=== PATIENT | male | born 1985 | race Hispanic/Latino ===

== ENCOUNTER 2020-10-18 12:51 | Emergency (ER) | payer OTHER ==
[~2020-10-18] VITALS: Ht 190.5 cm; Wt 89.8 kg
[2020-10-18] MEDS ORDERED: BENZONATATE 100 MG CAPSULE PO SCH (14:15)
[2020-10-18] MEDS ORDERED: ACETAMINOPHEN 325 MG TAB PO ONE (14:15)
[2020-10-18 14:16] VITALS: BP 123/79
[2020-10-18] MEDS ORDERED: ACETAMINOPHEN EXTRA STRENGTH 500 MG TABLET PO SCH (15:00)
[2020-10-18] MEDS ORDERED: BENZ-17 PO (15:52)
[2020-10-18] MEDS ORDERED: IVER3TAB PO (15:52)
[2020-10-18 16:10] VITALS: BP 128/70
== END 2020-10-18 16:26 | disposition home or self-care (01) ==
LOC: EDH 12:51
DX: U07.1 COVID-19 (principal); J12.82 Pneumonia due to coronavirus disease 2019; R19.7 Diarrhea, unspecified; H92.09 Otalgia, unspecified ear; Z79.899 Other long term (current) drug therapy
CPT/HCPCS: 71045; 87426; 87804